=== PATIENT | female | born 1990 | race Hispanic/Latino ===

== ENCOUNTER 2017-03-03 06:17 | Inpatient (IN) | payer OTHER ==
[~2017-03-03] VITALS: Ht 160 cm; Wt 79.4 kg
--- NOTE | 2017-03-03 14:31 | Operative Report ---
Operative/Inv Procedure Report Surgery Date: 03/03/17 Name of Procedure: Repeat Low transverse section via Pfannenstiel Bilateral tubal ligation Pre-Operative Diagnosis: G3 para 1011, 39 weeks 2 days intrauterine , prior section, patient desires sterilization Post-Operative Diagnosis: same Estimated Blood Loss: 800ml Surgeon/Fairing Worker: JIMMY MAYORGA,CHEY Dinh Anesthesia: spinal IV Fluids: 1600 mL lactated Ringer's Urine Output: 200 mL clear urine at the end of procedure Specimens: Portion of the tubes Complications: None Condition: Stable Operative Indication: 26-year-old G3 para 1011 at 39 weeks 2 days intrauterine , prior section, patient request for elective and bilateral tubal ligation Operative/Procedure Note Findings: The patient was taken to the operating room where spinal anesthesia was found to be adequate. She was then prepared and draped in the normal sterile fashion in the dorsosupine position with a leftward tilt. A Pfannenstiel skin incision was then made with the scalpel and carried through to the underlying layer of the fascia with the Bovie. The fascia was incised in the midline and the incision extended laterally with the Doherty scissors. The inferior aspect of this fascial incision was then grasped with the Lissett clamps, elevated, and the underlying rectus muscle dissected off with Doherty scissors. Attention was then turned to the superior aspect of this incision which in a similar fashion, grasped, tented up with the Lissett clamps, and the rectus muscle dissected off with Doherty scissors. The rectus muscle with then in the midline, and peritoneum identified, tented up, entered sharply with the Metzenbaum scissors. The peritoneal incision was then extended superiorly and inferiorly with good visualization of the bladder. The bladder blade was then inserted and the vesicouterine peritoneum identified, grasp with the pickups and entered sharply with the Metzenbaum scissors. The incision was then extended laterally and the bladder flap created digitally. The bladder blade was then reinserted and the lower uterine segment incised in a transverse fashion with the scalpel. The uterine incision was then extended laterally, the bladder blade was removed and the head delivered atraumatically. Double nuchal cord was noticed and released. The nose and mouth was suctioned with the suction bulb, and the cord clamped and cut. The was handed off to the waiting pediatricians. The placenta was then removed manually, the uterus exteriorized, and cleared of all clots and debris. The uterine incision was then repaired with 0 Vicryl in a running locked fashion. A second layer of the same suture was used to obtain excellent hemostasis. Attention was then turned to the left tube , a Jackson was used to grasp the midportion of the tube, tubal ligation was done use modified David technique, hemostasis assured. Same technique was used to the right tubal ligation. Hemostasis assured. The uterus returned to the abdomen. The gutters were cleared of all clots, and the peritoneum closed with 3-0 Vicryl. The rectus muscle was reapproximated with 2-0 Vicryl. The fascia was reapproximated with 0 Vicryl in a running fashion. Skin was closed with 4-0 Monocryl subcuticularly. The patient tolerated the procedure well. Sponge, lap and needle counts were correct 2. Patient was taken to the recovery room in stable condition.
[2017-03-04 08:19] LABS: ABSOLUTE BASOPHIL COUNT 0 /CUMM (0.0-0.2); ABSOLUTE EOSINOPHIL COUNT 0.2 /CUMM (0.0-0.7); ABSOLUTE GRANULOCYTE CT 7.7 /CUMM (1.4-6.5); ABSOLUTE LYMPH COUNT 1.4 /CUMM (1.2-3.4); ABSOLUTE MONOCYTE COUNT 0.6 /CUMM (0.10-0.60); BASOPHIL % 0.3 % (0.0-2.0); EOSINOPHIL % 1.8 % (0-5); MEAN CORPUSCULAR HGB 27.2 PG (27.0-31.0); MEAN CORPUSCULAR HGB CONC 32.5 G/DL (33.0-37.0); MEAN CORPUSCULAR VOLUME 83.6 FL (81.0-99.0); PLATELET COUNT 252 /CUMM (130-400); RBC DISTRIBUTION WIDTH 14.7 % (11.5-14.5); RED BLOOD CELL CT 2.91 /CUMM (4.20-5.40); WHITE BLOOD CELL COUNT 9.9 /CUMM (4.8-10.8)
[2017-03-04 08:58] LABS: HEMATOCRIT 24.3 % (37-47)
--- NOTE | 2017-03-04 15:20 | PN- OBGYN ---
Surgical Brief Attending Note Brief Attending Note: NO COMPLAINTS. DOING WELL. AMBULATING, VOIDING, TOLERATING PAIN AND PO. SMALL TO MOD LOCHIA. +NURSING VSSAF FF@U INC: C/D/I EXT: NO CALF TENDERNESS Laboratory Tests PREOP H/H 10.9 03/04/17 0700: CBC w Diff NO MAN DIFF REQ, RBC 2.91 L, MCV 83.6, MCH 27.2, RDW 14.7 H, MPV 9.0, Gran % 78.0 H, Lymphocytes % 14.3 L, Monocytes % 5.6, Eosinophils % 1.8, Basophils % 0.3, Absolute Granulocytes 7.7 H, Absolute Lymphocytes 1.4, Absolute Monocytes 0.6, Absolute Eosinophils 0.2, Absolute Basophils 0, PUBS MCHC 32.5 L Microbiology Date/Time Procedure - Status Source Growth 03/03 0745 Urine Culture - RES URINE ROUT Orders Procedure Date/time Status CBC WITHOUT DIFFERENTIAL 03/04 0600 Complete Clear Liquid Diet 03/03 L Complete Regular Diet 03/03 D Active Nothing by Mouth 03/03 B Complete PATHOLOGY SPECIMEN 03/03 0917 Complete Pathway - chart 03/03 0853 Active Misc Message 03/03 0853 Active Wound Care/Dressing 03/03 0853 Active Vital Signs 03/03 0853 Active CBC: Device(s) 03/03 0853 Active TRANSFER ORDERS 03/03 0850 Complete Pathway - chart 03/03 0623 Active Patient Data 03/03 0623 Active Vital Signs 03/03 0623 Complete OB: Monitoring 03/03 0623 Complete CBC: Device(s) 03/03 0623 Complete Activity/Ambulation 03/03 0623 Complete CULTURE,URINE 03/03 0623 Active Child[facility] Center Pt Data 03/03 UNK Active Admit to inpatient 03/03 UNK Active VTE Mechanical Prophylaxis 03/03 UNK Active Procedure Prep 03/03 UNK Complete [place], Insertion/Removal/Asses 03/03 UNK Complete A/P POD 1. DOING WELL. S/P REPEAT C/S AND BTL. ROUTINE POSTOP CARE
[2017-03-04] MEDS ORDERED: PERCOCET 5-3251 EACH PO (15:21)
[2017-03-04] MEDS ORDERED: IBUPROFEN800 M1 PO (15:21)
[2017-03-04 18:44] LABS: ABSOLUTE BASOPHIL COUNT 0 /CUMM (0.0-0.2); ABSOLUTE EOSINOPHIL COUNT 0.1 /CUMM (0.0-0.7); ABSOLUTE GRANULOCYTE CT 8.7 /CUMM (1.4-6.5); ABSOLUTE LYMPH COUNT 1.6 /CUMM (1.2-3.4); ABSOLUTE MONOCYTE COUNT 0.6 /CUMM (0.10-0.60); BASOPHIL % 0.4 % (0.0-2.0); EOSINOPHIL % 1.1 % (0-5); GRANULOCYTE % 78.7 % (42.2-75.2); HEMATOCRIT 24.9 % (37-47); MEAN CORPUSCULAR HGB 27.6 PG (27.0-31.0); MEAN CORPUSCULAR HGB CONC 32.7 G/DL (33.0-37.0); MEAN CORPUSCULAR VOLUME 84.5 FL (81.0-99.0); PLATELET COUNT 296 /CUMM (130-400); RBC DISTRIBUTION WIDTH 14.6 % (11.5-14.5); RED BLOOD CELL CT 2.95 /CUMM (4.20-5.40)
--- NOTE | 2017-03-05 11:16 | PN- OBGYN ---
Surgical Brief Attending Note Brief Attending Note: PT C/O DYSURIA. AND MORE PAIN WITH HER INCISION TODAY. OTHERWISE. AMBULATING, VOIDING, TOLERATING PAIN AND PO. +NURSING . MINIMAL LOCHIA VSSAF FF@U INC: C/D/I, +STERIS EXT: NO CALF TENDERNESS, NO EDEMA Laboratory Tests 03/04/17 1640: CBC w Diff NO MAN DIFF REQ, RBC 2.95 L, MCV 84.5, MCH 27.6, RDW 14.6 H, MPV 9.0, Gran % 78.7 H, Lymphocytes % 14.1 L, Monocytes % 5.7, Eosinophils % 1.1, Basophils % 0.4, Absolute Granulocytes 8.7 H, Absolute Lymphocytes 1.6, Absolute Monocytes 0.6, Absolute Eosinophils 0.1, Absolute Basophils 0, PUBS MCHC 32.7 L Microbiology Date/Time Procedure - Status Source Growth 03/05 1100 Urine Culture - ORD URINE ROUT Orders Procedure Date/time Status Discharge Patient 03/06 UNK Active CULTURE,URINE 03/05 1100 Active CBC WITHOUT DIFFERENTIAL 03/04 1800 Complete CBC WITHOUT DIFFERENTIAL 03/04 0600 Complete Clear Liquid Diet 03/03 L Complete Regular Diet 03/03 D Active Nothing by Mouth 03/03 B Complete PATHOLOGY SPECIMEN 03/03 0917 Complete Pathway - chart 03/03 0853 Active Misc Message 03/03 0853 Active Wound Care/Dressing 03/03 0853 Active Vital Signs 03/03 0853 Active CBC: Device(s) 03/03 0853 Active TRANSFER ORDERS 03/03 0850 Complete Pathway - chart 03/03 0623 Active Patient Data 03/03 0623 Active Vital Signs 03/03 0623 Complete OB: Monitoring 03/03 0623 Complete CBC: Device(s) 03/03 0623 Complete Activity/Ambulation 03/03 0623 Complete CULTURE,URINE 03/03 0623 Active Childbirth Center Pt Data 03/03 UNK Active Admit to inpatient 03/03 UNK Active VTE Mechanical Prophylaxis 03/03 UNK Active Procedure Prep 03/03 UNK Complete [place], Insertion/Removal/Asses 03/03 UNK Complete A/P POD 2. DOING WELL. ASX ANEMIA. WILL REPLACE UPON DISCHARGE. ROUTINE POSTOP CARE. REPEAT CBC STABLE. BASELINE URINE CULTURE NEG. WILL REPEAT SINCE CATHETERIZATION. ANTICIPATE D/C TOMORROW. PRECAUTIONS ADVISED.
[2017-03-05] MEDS ORDERED: FERRALET 90 TA1 EACH PO (11:17)
--- NOTE | 2017-03-06 07:46 | PN- OBGYN ---
Surgical Brief Attending Note Brief Attending Note: NO COMPLAINTS. DOING WELL. AMBULATING , VOIDING, TOLERATING PAIN AND PO. MINIMAL LOCHIA. +NURSING VSSAF FF@U INC : C/D/I EXT: NO CALF TENDERNESS OR EDEMA A/P POD 3. DOING WELL. DC TO HOME PRECUATIONS ADVSED. WILL REPLACE IRON FOR ASX ANEMIA
== END 2017-03-06 11:40 | DRG 540 ==
LOC: GNO 06:17
PROVIDERS: Obstetrics & Gynecology; Physician Assistant Medical; ADMIT Obstetrics & Gynecology
PROC: 0UB70ZZ Excision of Bilateral Fallopian Tubes, Open Approach (ICD-10-PCS; principal; 2017-03-03)
PROC: 10D00Z1 Extraction of Products of Conception, Low, Open Approach (ICD-10-PCS; principal; 2017-03-03)
DX: O34.211 Maternal care for low transverse scar from previous cesarean delivery (principal); N85.8 Other specified noninflammatory disorders of uterus; O69.81X0 Labor and delivery complicated by cord around neck, without compression, not applicable or unspecified; Z30.2 Encounter for sterilization; O90.81 Anemia of the puerperium; Z3A.39 39 weeks gestation of pregnancy; Z37.0 Single live birth
CPT/HCPCS: GNOS; 81001; 87086; 87147; J0690; J1650; J1885; J2210; J7120